=== PATIENT | male | born 1950 | race African-American/Black ===

== ENCOUNTER → 2017-04-28 | Outpatient (CLI) | payer OTHER ==
[~2017-04-28] MED LIST: ACETAMINOPHEN PO; AMLODIPINE BESYL5 MG PO; ASACOL HD800 MG PO; ASACOL400 MG; ASACOL400 MG PO; ASTELIN137 MCG INH; AZASAN100 M1; COUMADIN PO; COUMADIN4 MG PO; COUMADIN5 MG PO; GARLIC1000 MG PO; HYDROCODON-ACE1 EACH PO; IMURAN50 MG PO; LISINOPRIL20 MG PO; LODRANE 121 TAB.SR . PO; LORTAB 5/500 TA1 TA1 PO; LOVENOX30 MG/0.3 SUBQ; MIRALAX17 GM PO; MULTIVITAMIN W-1 TAB PO; NORCO 5/325 TAB1 TAB PO; NORVASC PO; NORVASC10 MG PO; NORVASC2.5 MG; NORVASC2.5 MG PO; PREDNISONE PO; PREDNISONE10 MG; PREDNISONE10 MG PO; PRILOSEC20 MG PO; PRILOSEC40 MG PO; PRINIVIL20 M1 PO; PRO STAT RC PO; TAB A VITE1 EACH PO; ZOCOR PO; ZOCOR20 MG PO
[2017-04-28 13:02] LABS: BASOPHIL% 0.5 % (0-2.5); EOSINOPHIL# 0.2 X10e3 (0-0.7); EOSINOPHIL% 3.6 % (0.0-7.0); HEMATOCRIT 40.8 % (38.0-50.0); HEMOGLOBIN 13.3 gm/dL (13.0-16.0); LYMPHOCYTE# 1.7 X10e3 (1.0-3.5); LYMPHOCYTE% 24.6 % (17.0-45.0); MEAN CELL VOLUME 93.8 FL (83-96); MEAN CORPUSCULAR HEMOGLOBIN 30.5 PG (28-34); MEAN CORPUSCULAR HGB CONC 32.5 g/dL (30-36); MONOCYTE# 0.8 X10e3 (0-1.0); MONOCYTE% 11.9 % (3.0-12.0); NEUTROPHIL% 59.4 % (40-75); PLATELET COUNT 183 X10e3 (140-420); RED BLOOD COUNT 4.35 X10e (3.90-5.60); RED CELL DISTRIBUTION WIDTH 15.5 % (11.0-15.5); WHITE BLOOD COUNT 6.7 X10e3 (4.0-10.5)
[2017-04-28 13:11] LABS: DIFF IND NO
[2017-04-28 13:31] LABS: ALBUMIN SERUM 3.6 g/dL (3.5-5.0); BILIRUBIN,TOTAL 0.6 mg/dL (0.2-2.0); CALCIUM SERUM 8.6 mg/dL (8.4-10.2); GLOM FILT RATE Estimated 89.9 mL/min (>60); POTASSIUM 4.1 mmol/L (3.5-5.1); PROTEIN TOTAL SERUM 6.4 g/dL (6.0-8.3)
== END | disposition home or self-care (01) ==
LOC: CLAB 12:29
PROVIDERS: Nurse Practitioner
DX: Z51.81 Encounter for therapeutic drug level monitoring (principal); Z79.899 Other long term (current) drug therapy
CPT/HCPCS: 36415; 80053; 85025